=== PATIENT | female | born 1995 | race Caucasian/White ===

== ENCOUNTER → 2020-10-25 | Outpatient (CLI) | payer SELFPAY ==
[2020-10-30 15:34] LABS: HPV Reflexed? NOT INDICATED
== END | disposition home or self-care (01) ==
LOC: LABSPEC 14:07
PROVIDERS: Visit Provider Student in an Organized Health Care Education/Training Program
DX: Z12.4 Encounter for screening for malignant neoplasm of cervix (principal)
CPT/HCPCS: 88175; G0145

== ENCOUNTER → 2022-01-08 | Outpatient (CLI) | payer OTHER, SELFPAY | END | disposition home or self-care (01) | PROVIDERS: PCP Family Medicine; Referring Provider Nurse Practitioner Women's Health; Visit Provider Nurse Practitioner Women's Health | DX: O20.9 Hemorrhage in early pregnancy, unspecified (principal); Z3A.00 Weeks of gestation of pregnancy not specified | CPT/HCPCS: 36415; 84702 ==

== ENCOUNTER → 2022-01-16 | Outpatient (CLI) | payer OTHER, SELFPAY ==
--- NOTE | 2022-01-16 14:37 | US_ITS ---
STUDY: FIRST TRIMESTER OBSTETRICAL ULTRASOUND REASON FOR EXAM: Female, 26 years old viability LMP: 11/12/2021 TECHNIQUE: Transabdominal and Transvaginal TECHNICAL QUALITY: Adequate. PRIOR ULTRASOUND: None. FINDINGS: There is visualization of a single gestational sac in a normal intrauterine position. The mean sac diameter (MSD) measures 33 mm, indicating an estimated gestational age (EGA) of 8 weeks, 3 days. The gestational sac shape is within normal limits. Small subchorionic hemorrhage (implantation bleed) adjacent to the gestational sac. There is a visualized yolk sac. The yolk sac measures 5 mm. The placenta is non-visualized. There is visualization of a live embryo. The crown-rump length (CRL) measures 22 mm, indicating an estimated gestational age (EGA) of 8 weeks, 5 days. There is demonstrated cardiac activity with a heart rate of 176 bpm. The estimated gestation age (EGA) by LMP is 9 weeks, 2 days. The estimated date of delivery (EMI) by LMP is 08/19/2022. The estimated gestation age (EGA) by US is 8 weeks, 4 days. The estimated date of delivery (EMI) by US is 08/24/2022. The uterus measures 9.3 x 6.7 x 5.9 cm. There is no demonstrated uterine fibroid. The cervix is closed. The right ovary measures 3.0 x 2.5 x 2.3 cm. 2 cm cyst in the right ovary. There is no visualized right adnexal mass or complex lesion. The left ovary measures 3.1 x 1.4 x 1.9 cm. There is no left ovarian cyst. There is no visualized left adnexal mass or complex lesion. There is no fluid in the cul de sac. US/Init OB < 14Wks US IMPRESSION: Living intrauterine of 8 weeks 4 days as described above. Electronically Signed: Jaylan Goldstein MD at 18:12 EDT ,
== END | disposition home or self-care (01) ==
LOC: US 14:35
PROVIDERS: PCP Family Medicine; Referring Provider Nurse Practitioner Women's Health; Visit Provider Nurse Practitioner Women's Health
DX: O20.9 Hemorrhage in early pregnancy, unspecified (principal); Z3A.08 8 weeks gestation of pregnancy
CPT/HCPCS: 76801

== ENCOUNTER → 2022-01-21 | Outpatient (CLI) | payer OTHER, SELFPAY ==
[2022-01-21 11:47] LABS: Amphetamine Urine VISTA NEGATIVE (<1000 ng/mL); Barbiturate Urine VISTA NEGATIVE (< 200 ng/mL); Benzodiazepine Urine VISTA NEGATIVE (< 200 ng/mL); Cocaine Urine VISTA NEGATIVE (< 300 ng/mL); Ecstacy Urine VISTA NEGATIVE (< 500 ng/mL); Methadone Urine VISTA NEGATIVE (< 300 ng/mL); PCP Urine VISTA NEGATIVE (< 25 ng/mL); THC Urine VISTA NEGATIVE (< 50 ng/mL); Vista UDS pH Range 6
[2022-01-26 11:26] LABS: Chlamydia By Nucleic Acid AMP Negative (Negative)
[2022-01-26 19:31] LABS: Gonococcus By Nucleic Acid AMP Negative (Negative)
== END | disposition home or self-care (01) ==
LOC: LABSPEC 01-22 06:40
PROVIDERS: PCP Family Medicine; Referring Provider Obstetrics & Gynecology; Visit Provider Obstetrics & Gynecology
DX: Z34.00 Encounter for supervision of normal first pregnancy, unspecified trimester (principal)
CPT/HCPCS: 80307; 87086; 87088; 87491; 87591

== ENCOUNTER → 2022-02-18 | Outpatient (CLI) | payer OTHER, SELFPAY ==
[2022-02-18 16:43] LABS: Absolute Lymphocyte Count 1.62 X10^3/uL (0.83-4.51); Absolute Neutrophil Count 7.8 X10^3/uL (2.0-7.7); Basophil# 0.02 X10^3/uL; Basophil% 0.2 % (0-1); Eosinophil# 0.12 X10^3/uL; Eosinophils% 1.2 % (0-5); Hematocrit 38.1 % (37-47); Lymphocyte # 1.62 X10^3/ul (0.83-4.51); Mean Corp Hgb Conc 34.1 g/dL (32-36); Mean Corpuscular Hgb 30.2 pg (27.0-32.0); Mean Corpuscular Volume 88.6 fL (81-99); Mean Platelet Vol. 9.7 fl (6.2-12.0); Monocyte# 0.56 X10^3/uL; Monocyte% 5.5 % (0-10); NRBC Flagged by Analyzer 0 % (0-5); Neutrophil # 7.76 X10^3/uL (2.7-7.7); Neutrophil % 76.6 % (47-70); Platelet Count 250 K/mm3 (150-450); RBC Distribution Width CV 12.3 % (11.6-14.6); RBC Distribution Width SD 39.5 fl (35.1-43.9); White Blood Count 10.1 K/mm3 (4.4-11.0)
[2022-02-18 17:58] LABS: HIV - WCH Non-Reactive (Nonreactive); Hepatitis B Surface Antigen Non-Reactive (Nonreactive); Hepatitis C Antibody Non-Reactive (Nonreactive); Rubella IgG Reactive (Nonreactive); Syphilis Antibodies Non-reactive
== END | disposition home or self-care (01) ==
PROVIDERS: PCP Family Medicine; Referring Provider Obstetrics & Gynecology; Visit Provider Obstetrics & Gynecology
DX: Z34.00 Encounter for supervision of normal first pregnancy, unspecified trimester (principal)
CPT/HCPCS: 36415; 85025; 86703; 86762; 86780; 86803; 86850; 86900; 86901; 87340

== ENCOUNTER → 2022-05-27 | Outpatient (CLI) | payer OTHER, SELFPAY ==
[2022-05-27 12:57] LABS: Absolute Lymphocyte Count 1.21 X10^3/uL (0.83-4.51); Absolute Neutrophil Count 10.1 X10^3/uL (2.0-7.7); Basophil# 0.03 X10^3/uL; Basophil% 0.2 % (0-1); Eosinophil# 0.12 X10^3/uL; Hemoglobin 13.2 g/dL (12.0-15.0); Lymphocyte # 1.21 X10^3/ul (0.83-4.51); Lymphocyte % 9.9 % (19-41); Mean Corp Hgb Conc 34.7 g/dL (32-36); Mean Corpuscular Hgb 31.5 pg (27.0-32.0); Mean Corpuscular Volume 90.7 fL (81-99); Monocyte% 5.7 % (0-10); NRBC Flagged by Analyzer 0 % (0-5); Neutrophil # 10.09 X10^3/uL (2.7-7.7); Neutrophil % 82.9 % (47-70); Platelet Count 237 K/mm3 (150-450); RBC Distribution Width CV 12.6 % (11.6-14.6); RBC Distribution Width SD 41.1 fl (35.1-43.9); Red Blood Count 4.19 M/mm3 (4.2-5.4); White Blood Count 12.2 K/mm3 (4.4-11.0)
[2022-05-27 13:20] LABS: Glucose Challenge Gest 1H 50g 112 mg/dL (70-140)
== END | disposition home or self-care (01) ==
PROVIDERS: PCP Family Medicine; Visit Provider Obstetrics & Gynecology
DX: O20.9 Hemorrhage in early pregnancy, unspecified (principal); Z3A.00 Weeks of gestation of pregnancy not specified
CPT/HCPCS: 36415; 82950; 85025; 86850; 86900; 86901

== ENCOUNTER → 2022-07-15 | Outpatient (CLI) | payer OTHER, SELFPAY ==
--- NOTE | 2022-07-15 15:39 | US_ITS ---
STUDY: OBSTETRICAL ULTRASOUND - BIOPHYSICAL PROFILE REASON FOR EXAM: Female, 27 years old well being -- hypertension LMP: 11/12/2021. PRIOR ULTRASOUND: Comparison is made with prior sonogram dated 01/16/2022. TECHNIQUE: Transabdominal TECHNICAL QUALITY: Adequate. FINDINGS: There is a single intrauterine fetus. The fetus is in a breech presentation. There is demonstrated cardiac activity with a heart rate of 148 bpm. There is a normal amniotic fluid volume. The largest amniotic fluid pocket measures 4.8 cm x 2.6 cm. The amniotic fluid index (ARTURO) is 14.9 cm. The placenta is fundal and posterior in location. There are Grade 1 placental changes. Age by LMP: 35 weeks, 0 days. EMI by LMP: 08/19/2022. age by prior US: 33 weeks, 0 days. EMI by prior US: 09/02/2022. BIOPHYSICAL PROFILE: Breathing Movements (FBM): 2 Gross Body Movements (GBM): 2 Tone (FT): 2 Amniotic Fluid Volume (AFV): 2 TOTAL SCORE: 8 / 8 US/Biophysical Prof W/O Non Stres IMPRESSION: Normal biophysical profile of /8. Electronically Signed: Bartolo Naylor MD at 12:17 EST ,
--- NOTE | 2022-07-15 15:39 | US_ITS ---
STUDY: SECOND AND THIRD TRIMESTER OBSTETRICAL ULTRASOUND - LIMITED REASON FOR EXAM: Female, 27 years old growth -- hypertension -- known shortened cx LMP: 11/12/2021. PRIOR ULTRASOUND: Comparison is made with prior study dated 01/16/2022. TECHNIQUE: Transabdominal TECHNICAL QUALITY: Adequate. FINDINGS: There is a single intrauterine fetus. The fetus is in a breech presentation. There is demonstrated cardiac activity with a heart rate of 145 bpm. There is a normal amniotic fluid volume. The largest amniotic fluid pocket measures 4.2 cm x 4.1 cm. The amniotic fluid index (ARTURO) is 14.5 cm. The placenta is fundal and posterior in location. There are Grade 1 placental changes. The cervix measures 2. cm in length. BIOMETRY: BPD: 8.18 cm: 32 weeks, 6 days HC: 30.26 cm: 33 weeks, 4 days AC: 29.24 cm: 33 weeks, 2 days FL: 6.65 cm: 34 weeks, 2 days Age by LMP: 35 weeks, 0 days. EMI by LMP: 08/19/2022. age by prior US: 33 weeks, 1 days. EMI by prior US: 09/01/2022. age by current US: 33 weeks, 0 days. EMI by current US: 09/02/2022. Estimated weight: 2228 grams, +/- 334 grams, 14.3 percentile. US/OB Limited With Biometrics IMPRESSION: Single live intrauterine gestation with a mean gestational age of 33 weeks and 1 day. The measurements obtained today fall within the normal expected range. Electronically Signed: Bartolo Naylor MD at 12:11 EST ,
[2022-07-15 16:03] LABS: Absolute Lymphocyte Count 1.65 X10^3/uL (0.83-4.51); Absolute Neutrophil Count 8.5 X10^3/uL (2.0-7.7); Basophil# 0.03 X10^3/uL; Basophil% 0.3 % (0-1); Eosinophils% 0.9 % (0-5); Hematocrit 40.8 % (37-47); Hemoglobin 13.6 g/dL (12.0-15.0); Lymphocyte # 1.65 X10^3/ul (0.83-4.51); Lymphocyte % 14.9 % (19-41); Mean Corp Hgb Conc 33.3 g/dL (32-36); Mean Corpuscular Hgb 30.8 pg (27.0-32.0); Mean Corpuscular Volume 92.5 fL (81-99); Mean Platelet Vol. 9.4 fl (6.2-12.0); Monocyte# 0.76 X10^3/uL; Monocyte% 6.9 % (0-10); NRBC Flagged by Analyzer 0 % (0-5); Neutrophil # 8.46 X10^3/uL (2.7-7.7); Neutrophil % 76.5 % (47-70); Platelet Count 242 K/mm3 (150-450); RBC Distribution Width CV 13.1 % (11.6-14.6); RBC Distribution Width SD 43.4 fl (35.1-43.9); Red Blood Count 4.41 M/mm3 (4.2-5.4); White Blood Count 11.1 K/mm3 (4.4-11.0)
[2022-07-15 16:22] LABS: ALB/GLOB Ratio 0.7 RATIO (0.9-2.4); AST(SGOT) 16 U/L (15-37); Alanine Aminotransfer ALT/SGPT 28 U/L (13-56); Albumin, Serum 2.7 g/dL (3.2-5.0); Alkaline Phosphatase 93 U/L (45-117); Anion Gap 8 (5-15); BUN 11 mg/dL (7-18); BUN/Creat Ratio 18.3 RATIO (10-20); Calcium,Total 8.8 mg/dL (8.5-10.1); Chloride 108 mmol/L (98-107); EST Glomerular Filtration Rate 127 mL/min (>60); Est Glom Filt Rate - Afr Amer 153 mL/min (>60); Glucose 82 mg/dL (74-106); Potassium 3.9 mmol/L (3.5-5.1); Protein, Total 6.7 g/dL (6.4-8.2); Sodium Level 137 mmol/L (136-145)
== END | disposition home or self-care (01) ==
PROVIDERS: PCP Family Medicine; Visit Provider Obstetrics & Gynecology
DX: O26.849 Uterine size-date discrepancy, unspecified trimester (principal); O16.3 Unspecified maternal hypertension, third trimester; Z3A.33 33 weeks gestation of pregnancy
CPT/HCPCS: 36415; 76816; 76819; 80053; 85025

== ENCOUNTER → 2022-07-16 | Outpatient (CLI) | payer OTHER, SELFPAY ==
[2022-07-16 13:34] LABS: Protein, Urine (Random) 12.2 mg/dL (<11.9); Protein:Creat Ratio 126 mg/g CRE (0-200)
== END | disposition home or self-care (01) ==
PROVIDERS: PCP Family Medicine; Referring Provider Obstetrics & Gynecology; Visit Provider Obstetrics & Gynecology
DX: O16.3 Unspecified maternal hypertension, third trimester (principal); Z3A.00 Weeks of gestation of pregnancy not specified
CPT/HCPCS: 82570; 84156

== ENCOUNTER 2022-07-22 10:50 | Outpatient (CLI) | payer OTHER, SELFPAY ==
[2022-07-22] VITALS (8 sets, daily range): BP systolic 118–133; BP diastolic 72–87; PULSE 78–90; TEMP 36.5; O2SAT 96; BMI 34.7
[2022-07-22 11:24] LABS: Hematocrit 39.7 % (37-47); Hemoglobin 13.3 g/dL (12.0-15.0); Mean Corp Hgb Conc 33.5 g/dL (32-36); Mean Corpuscular Hgb 30.6 pg (27.0-32.0); Mean Corpuscular Volume 91.3 fL (81-99); Mean Platelet Vol. 9.6 fl (6.2-12.0); Platelet Count 218 K/mm3 (150-450); RBC Distribution Width CV 12.9 % (11.6-14.6); RBC Distribution Width SD 42.3 fl (35.1-43.9); Red Blood Count 4.35 M/mm3 (4.2-5.4); White Blood Count 11.9 K/mm3 (4.4-11.0)
[2022-07-22 11:40] LABS: AST(SGOT) 15 U/L (15-37); Alanine Aminotransfer ALT/SGPT 22 U/L (13-56); Creatinine, Serum 0.57 mg/dL (0.55-1.02); EST Glomerular Filtration Rate 135 mL/min (>60); Est Glom Filt Rate - Afr Amer 164 mL/min (>60); Estimated Creatinine Clearance 122.64 ml/min; Uric Acid 6.2 mg/dL (2.6-6.0)
[2022-07-22 12:52] LABS: Protein, Urine (Random) 6.2 mg/dL (<11.9); Protein:Creat Ratio 107 mg/g CRE (0-200)
--- NOTE | 2022-07-22 20:08 | OB.TRI.HP_ITS ---
HPI - General HPI Narrative MARIA DEL CARMEN SOUZA, is a 27 F who presents to L&D for PIH work up and NST. She was in office earlier today and found to have elevated blood pressures and breech presentation. [facility] Medical History (Updated 07/29/22 @ 17:04 by Jaylyn Gimenez) Gestational HTN Short cervical length during Supervision of normal first Home Medications prenat.vits,imelda,mjn-yaao-jhgru 1 tab PO DAILY 01/07/22 [History Last Taken 07/28/22] ibuprofen 800 mg tablet 800 mg PO Q8H PRN pain 7 days #30 tabs 07/29/22 [Rx Last Taken Unknown] oxycodone-acetaminophen 5 mg-325 mg tablet (Percocet) 1 tab PO Q6H PRN pain 7 days #30 tabs 07/29/22 [Rx Last Taken Unknown] Allergy/AdvReac Type Severity Reaction Status Date / Time cetirizine [From Zyrtec] AdvReac Mild stomach Verified 07/27/22 09:24 pains Family History Father Hypertension Pacemaker Hypercholesteremia Mother Cancer skin cancer Surgical History (Updated 07/30/22 @ 08:[address] Amy Santiago, DO) History of surgery Status post section Social History adopted: No household members: spouse current occupational status: employed current occupation: [employer] pets and animals: Yes pets and animals: dog(s) Smoking Status: Never smoker details: not while substance use type: does not use caffeine: Yes do you feel safe at home: Yes additional social history: spouse:Yoni History 1 Elective abortions Hx Para 1 Spontaneous abortions Hx # Term Pregnancies Ectopic pregnancies Hx # Pregnancies Multiple births # of living children 1 Past Pregnancies Del. Date Name GA/Weeks Outcome Route Bth Weight Gen Labor Lgth Anesthesia Del Locatn Provider FOB 07/29/22 Hannah 37 live - full term Female spinal [facility] Amy Santiago Yoni Delivery Date: 07/29/22 Last Updated by: Jaylyn Gimenez prim c/s for breech ROS Constitutional Constitutional: Reports systems reviewed and no addt'l complaints, except as doc umented Gastrointestinal Gastrointestinal: Denies bloating, constipation, cramping, diarrhea, nausea or vomiting Genitourinary Genitourinary: Reports other Details: Denies vaginal odor, vaginal bleeding, or vaginal discharge ; Denies difficulty urinating or flank pain Physical Exam HEENT normocephalic Resp normal respiratory effort and normal air movement no CVA tenderness Extremity normal to inspection General Extremity: edema bilateral (trace ) NST FHR Rate Baby A Baseline: 140 Variability:: Moderate Accelerations:: 15 x 15 Decelerations:: None NST Reactive:: Yes FHR Category:: Category I Assessment & Plan (1) : QUALIFIERS: Weeks of gestation: 36 weeks Qualified Code(s): Z3A.36 - 36 weeks gestation of COMMENT: nl anatomy, declines carrier, ntd, and genetic screen. (2) Short cervical length during : COMMENT: incidentally, on progesterone supplement. 04/01 25.5mm. Rpt US still 25.5mm stable (3) induced hypertension: COMMENT: PIH labs normal, growth us baby 14% likely plan for 37 week delivery. C section scheduled for 07/29 @ 7:10am. PLAN: PIH but not pre-eclampsia. plan for 37 week delivery dc to home Charges/Coding Multi Select Codes Visit Charges Office Visit/Consults: 08793 OV L3 Est Urinary/Genital Urinary/Genital CPT Codes: 12119-52 non-stress test Interp
== END 2022-07-22 12:57 | disposition home or self-care (01) ==
LOC: WPOUT 10:57 → WP 10:57
PROVIDERS: PCP Family Medicine; Visit Provider Registered Nurse
DX: O13.3 Gestational [pregnancy-induced] hypertension without significant proteinuria, third trimester (principal); O34.219 Maternal care for unspecified type scar from previous cesarean delivery; Z3A.36 36 weeks gestation of pregnancy; O26.873 Cervical shortening, third trimester
CPT/HCPCS: 36415; 59025; 59050; 76815; 82565; 82570; 84156; 84450; 84460; 84550; 85027; 87081; 99218; G0378

== ENCOUNTER 2022-07-29 05:00 | Inpatient (IN) | payer OTHER, SELFPAY ==
[2022-07-29] VITALS (19 sets, daily range): BP systolic 103–128; BP diastolic 57–85; PULSE 70–93; RESP 16–18; TEMP 36.1–37; O2SAT 94–98; BMI 35.0
[2022-07-29] MEDS: Lactated Ringers 1,000 ML 999 ML IV (05:20)
[2022-07-29 05:33] LABS: Absolute Lymphocyte Count 1.86 X10^3/uL (0.83-4.51); Absolute Neutrophil Count 7.3 X10^3/uL (2.0-7.7); Basophil# 0.03 X10^3/uL; Basophil% 0.3 % (0-1); Eosinophil# 0.15 X10^3/uL; Eosinophils% 1.5 % (0-5); Hematocrit 39.6 % (37-47); Hemoglobin 13.2 g/dL (12.0-15.0); Lymphocyte # 1.86 X10^3/ul (0.83-4.51); Lymphocyte % 18.6 % (19-41); Mean Corp Hgb Conc 33.3 g/dL (32-36); Mean Corpuscular Hgb 30.9 pg (27.0-32.0); Mean Corpuscular Volume 92.7 fL (81-99); Mean Platelet Vol. 9.8 fl (6.2-12.0); Monocyte# 0.61 X10^3/uL; Monocyte% 6.1 % (0-10); NRBC Flagged by Analyzer 0 % (0-5); Neutrophil % 73.2 % (47-70); Platelet Count 215 K/mm3 (150-450); RBC Distribution Width CV 13.2 % (11.6-14.6); RBC Distribution Width SD 44.2 fl (35.1-43.9); Red Blood Count 4.27 M/mm3 (4.2-5.4)
[2022-07-29] MEDS: Acetaminophen 500 MG Tablet 1000 MG PO ×4 (05:39→23:40)
[2022-07-29] MEDS: Lactated Ringers 1,000 ML 150 ML IV (06:16)
[2022-07-29] MEDS: Sodium Citrate/Citric Acid 30 ML UDC PO (06:59)
--- NOTE | 2022-07-29 07:09 | HP.PCM.OB_ITS ---
HPI - General General Date of Admission: 07/29/22 HPI Narrative MARIA DEL CARMEN SOUZA, is a 27 y/o @ 37 weeks who presents to L&D for scheduled section due to breech and pre-eclampsia. Maternal Data Information EMI Calculator Estimated Delivery Date Method Current WG Current Estimate 08/19/22 Ultrasound #2 37w 0d Other Estimates 08/19/22 LMP (Certain) 37w 0d PFSH PFSH Medical History (Updated 07/29/22 @ 05:33 by Bonny Marte) Gestational HTN Home Medications prenat.vits,imelda,uwt-firs-zhowk 1 tab PO DAILY 01/07/22 [History Last Taken 07/28/22] Allergy/AdvReac Type Severity Reaction Status Date / Time cetirizine [From Zyrtec] AdvReac Mild stomach Verified 07/27/22 09:24 pains Family History Father Hypertension Pacemaker Hypercholesteremia Mother Cancer skin cancer Surgical History (Updated 07/29/22 @ 05:33 by Bonny Marte) History of surgery Social History adopted: No household members: spouse current occupational status: employed current occupation: [employer] at work Care pets and animals: Yes pets and animals: dog(s) Smoking Status: Never smoker details: not while substance use type: does not use caffeine: Yes do you feel safe at home: Yes additional social history: spouse:Yoni History 1 Elective abortions Hx Para 0 Spontaneous abortions Hx # Term Pregnancies Ectopic pregnancies Hx # Pregnancies Multiple births # of living children Visit Details Expected Delivery Route/Plan Labor Preferences- CB/BF classes: yes labor support person: Yoni labor intervention preferences: [] pain management options preferred: open to epidural cut cord/dad catch: cord : yes PP control planned: [] discussed possible routes of delivery and associated risks: [] special requests: [] Plans Covid status: unvaccinated, covid infection June 2021 Flu vaccine: unvaccinated Tdap vaccine: given Rhogam: na LARC form signed: yes Problem list reviewed and updated with the most current plan of care details and appropriate orders placed. Relevant counseling for the gestational age provided. Continue routine care and follow up unless otherwise noted in visit notes/problem list details OB Flowsheet Initial Weight: Not Recorded Date -?-?-?-?-?-?-?-?-?-?-?-?- EGA Weight BP Urine Prot -?-?-?-?-?-?-?-?-?-?-?-?- Glucose FHR FuHt Pres Dilation -?-?-?-?-?-?-?-?-?-?-?-?- Effaced St Visit Note 01/21/22 -?-?-?-?-?-?-?-?-?-?-?-?- 10w 0d 153 lb 8 oz 110/78 -?-?-?-?-?-?-?-?-?-?-?-?- 171 -?-?-?-?-?-?-?-?-?-?-?-?- JV- CRL today is consistent with LMP. ultrasound was done at hospital also. keeping due date 08/19/21 02/18/22 -?-?-?-?-?-?-?-?-?-?-?-?- 14w 0d 154 lb 8 oz 110/64 Nega tive -?-?-?-?-?-?-?-?--?-?-?-?- Negative 163 -?-?-?-?-?-?-?-?-?-?-?-?- MH-No further VB . Nausea improving. Will do PNL today. Declines genetic testing. 03/18/22 -?-?-?-?-?-?-?-?-?-?-?-?- 18w 0d 160 lb 6 oz 113/76 Nega tive -?-?-?-?-?-?-?-?-?-?-?-?- Negative 160 -?-?-?-?-?-?-?-?-?-?-?-?- JV- has ultrasou nd appt next week. no further nausea. 04/13/22 -?-?-?-?-?-?-?-?-?-?-?-?- 21w 5d 170 lb 102/74 Negative -?-?-?-?-?-?-?-?-?-?-?-?- Negative 150 -?-?-?-?-?-?-?-?-?-?-?-?- SM- no vb lof go od fm no regular ctx 05/12/22 -?-?-?-?-?-?-?-?-?-?-?-?- 25w 6d 177 lb 118/80 Negative -?-?-?-?-?-?-?-?-?-?-?-?- Negative 155 26 -?-?-?-?-?-?-?-?-?-?-?-?- SM- no vb lof go od fm nor egular ctx 05/27/22 -?-?-?-?-?-?-?-?-?-?-?-?- 28w 0d 182 lb 118/70 Negative -?-?-?-?-?-?-?-?-?-?-?-?- Negative 150 -?-?-?-?-?-?-?-?-?-?-?-?- MH-No vB, LOF. G ood FM. Inital FHt 180-200. On monitor and then 150s. Very active fetus. 28 wk labs, larc. Declines flu. Considering tdap. 06/10/22 -?-?-?-?-?-?-?-?-?-?-?-?- 30w 0d 186 lb 118/76 Negative -?-?-?-?-?-?-?-?-?-?-?-?- Negative 153 29 -?-?-?-?-?-?-?-?-?-?-?-?- LC- no vb,ctx,lo f. good FM. discussed tdap again, will decide. 06/24/22 -?-?-?-?-?-?-?-?-?-?-?-?- 32w 0d 189 lb 6 oz 118/84 Nega tive -?-?-?-?-?-?-?-?-?-?-?-?- Negative 159 32 -?-?-?-?-?-?-?-?-?-?-?-?- MH-No VB, LOF or reg CTX. Good FM. Tdap today 07/08/22 -?-?-?-?-?-?-?-?-?-?-?-?- 34w 0d 191 lb 8 oz 131/88 Nega tive -?-?-?-?-?-?-?-?-?-?-?-?- Negative 154 33 -?-?-?-?-?-?-?-?-?-?-?-?- JV- no lof, vagi nal bleeding, headache, visual changes, RUQ pain, or dec fm. bringing back next week to watch pressures closer. no proteinuria today. 07/15/22 -?-?-?-?-?-?-?--?-?-?-?-?- 35w 0d 194 lb 6 oz 140/94 Nega tive -?-?-?-?-?-?-?-?-?-?-?-?- Negative 145 33 Cephalic -?-?-?-?-?-?-?-?-?-?-?-?- JV- pressures st arting to increase into the range of 140's/90's still asymptomatic. ordering PIH labs, growth and bpp today. 07/22/22 -?-?-?-?-?-?-?-?-?-?-?-?- 36w 0d 195 lb 136/100 Trace -?-?-?-?-?-?-?-?-?-?-?-?- Negative 140 35 1 -?-?-?-?-?-?-?-?-?-?-?-?- 60 -3 LC- BP at home 130/90-95. no headache, visual changes or RUQ pain. will obtain NST and BPP today. IOL next week LC- BP at home 130/90-95. no headache, visual changes or RUQ pain. d/w Dr. Santiago sending to for PEC work up dt severe diastolic range BP. LC- BP at home 130/90-95. no headache, visual changes or RUQ pain. d/w Dr. Santiago sending to for PEC work up dt severe diastolic range BP. GBS collected today 07/27/22 -?-?-?-?-?-?-?-?-?-?-?-?- 36w 5d 198 lb 4 oz 118/88 Nega tive -?-?-?-?-?-?-?-?-?-?-?-?- Negative 140 37 Breech -?-?-?-?-?-?-?-?-?-?-?-?- SM- no vb lof go od fm n oregular ctx consent signed ROS Constitutional Constitutional: Denies change in weight, fatigue, fever(s), headache(s), poor appetite or weakness Eyes Eyes: Denies blurry vision, change in vision, seeing flashes or spots in vision ENT HEENT: Denies dizziness, headache(s), loss taste/smell or sore throat Cardiovascular Cardiovascular: Denies chest pain, dizziness, dyspnea, irregular heart rhythm, leg edema, palpitations, rapid heart rate or vomiting Respiratory/Chest Respiratory/Chest: Denies chest tightness, cough, dyspnea or breast pain Gastrointestinal Gastrointestinal: Denies abdominal pain, anorexia, constipation, cramping, diarrhea, hemorrhoids, vomiting or weight changes Genitourinary Genitourinary: Denies dysuria, flank pain, genital lesions, genital pain, urinary frequency or urinary urgency Musculoskeletal Musculoskeletal: Denies back pain, difficulty walking, joint pain, limited range of motion, muscle cramps or numbness Integumentary Integumentary: Denies lesions or unusual bruising Neurologic Neurologic: Denies abnormal movements, abnormal speech, dizziness, numbness, seizure-like activity or syncope Psychiatric Psychiatric: Denies anxiety, behavioral changes, change in appetite, change in libido, cognitive impairment, confusion, depression, difficulty concentrating, hallucinations or suicidal thoughts Endocrine Endocrinology: Denies excessive sweating, polydipsia or polyuria Hematologic/Lymphatic Hematologic/Lymphatic: Denies easy bleeding, easy bruising or lymphadenopathy Allergic/Immunologic Allergic/Immunologic: Denies itchy eyes, lip swelling, seasonal rhinorrhea, rhinitis, throat swelling, tongue swelling, eczemia, wheezing or asthma Vital Signs Vital Signs Vital Signs: 07/29/22 05:37 07/29/22 05:19 07/29/22 05:19 Temperature 97.6 F L Temperature Source Temporal Pulse Rate 93 92 Respiratory Rate 18 Blood Pressure 128/80 H 128/80 H Blood Pressure Mean 96 BP Systolic 128 BP Diastolic 80 Blood Pressure Source Monitor Blood Pressure Position Semi-Fowlers Blood Pressure Location Right Arm Pulse Ox 98 Oxygen Delivery Method Room Air 07/29/22 05:19 Temperature Temperature Source Pulse Rate Respiratory Rate Blood Pressure Blood Pressure Mean BP Systolic BP Diastolic Blood Pressure Source Blood Pressure Position Blood Pressure Location Pulse Ox 98 Oxygen Delivery Method Weight Weight: 198 lb Body Mass Index (BMI) 35.0 Physical Exam Const alert, oriented x3, no apparent distress and healthy appearing General Appearance: cooperative; Negative for anxious HEENT normocephalic Face and Sinus: normal facial exam Eyes EOMs intact bilaterally and no scleral icterus General Eye: normal appearance of both eyes Neck full ROM and supple Lymph Lymphatic: no lymphadenopathy noted Chest Chest: abnormal inspection of the chest Resp normal respiratory effort Effort and Inspection: able to speak in complete sentences Cardio regular rate GI soft to palpation and non-tender Inspection: gravid Palpation: soft; Negative for tender Back/Spine no CVA tenderness Extremity normal to inspection, full ROM and no clubbing, cyanosis or edema General Extremity: Negative for calf tenderness or edema Skin Lesions: no lesions Rashes: no rashes Psych mental status grossly normal Labs Labs Labs: Blood Type A POSITIVE Antibody Screen NEGATIVE Hct 39.6 % (37-47) Hgb 13.2 g/dL (12.0-15.0) Pap Smear Negative Obstetrics US Syphilis Total Ab Non-reactive Rubella IgG Antibody Reactive (Nonreactive) Hep Bs Antigen Non-Reactive (Nonreactive) Chlamydia DNA (SRIRAM) Negative (Negative) Neisseria gonorrhoeae DNA (SRIRAM) Negative (Negative) HIV 1&2 Antibody Non-Reactive (Nonreactive) Glucose 1 Hr 50 gm 112 mg/dL (70-140) Assessment & Plan (1) : QUALIFIERS: Weeks of gestation: 36 weeks Qualified Code(s): Z3A.36 - 36 weeks gestation of COMMENT: nl anatomy, declines carrier, ntd, and genetic screen. (2) Supervision of normal first : COMMENT: PRR EMI: 08/19/22 girl Celine Sp:Yoni (3) Short cervical length during : COMMENT: incidentally, on progesterone supplement. 04/01 25.5mm. Rpt US still 25.5mm stable (4) induced hypertension: COMMENT: PIH labs normal, growth us baby 14% likely plan for 37 week delivery. C section scheduled for 07/29 @ 7:10am. PLAN: Plan plan for primary ERAS scheduled section 2 grams ancef ordered position confirmed breech this am
[2022-07-29] MEDS: Ondansetron 4 MG/2 ML Vial IV (07:10)
[2022-07-29] MEDS: Cefazolin 2 GM in 0.9% Normal Saline 100 ML IV (07:25)
[2022-07-29] MEDS: Oxytocin 15 Units/NS 250ml 15 UNITS/250 ML IV.SOLN 83 UNITS IV (08:25)
--- NOTE | 2022-07-29 08:48 | OP.PCM_ITS ---
Assessment & Plan (1) : QUALIFIERS: Weeks of gestation: 36 weeks Qualified Code(s): Z3A.36 - 36 weeks gestation of COMMENT: nl anatomy, declines carrier, ntd, and genetic screen. (2) Supervision of normal first : COMMENT: PRR EMI: 08/19/22 homero Berger Sp:Yoni (3) Short cervical length during : COMMENT: incidentally, on progesterone supplement. 04/01 25.5mm. Rpt US still 25.5mm stable (4) induced hypertension: COMMENT: PIH labs normal, growth us baby 14% likely plan for 37 week delivery. C section scheduled for 07/29 @ 7:10am. Maternal Data Information EMI Calculator Estimated Delivery Date Method Current WG Current Estimate 08/19/22 Ultrasound #2 37w 0d Other Estimates 08/19/22 LMP (Certain) 37w 0d Final EMI: 08/19/21 Final EMI Source: US <20 weeks Gestational age: 37 weeks Details Operative Information Date of Procedure: 07/29/22 Pre-Operative Diagnosis: 37 weeks 0 days , mild pre-eclampsia, Breech presentation Post-Operative Diagnosis: 37 weeks 0 days , mild pre-eclampsia, Breech presentation Classification: Scheduled Procedure Type: low transverse extension course counselor #1: Yuli Delgado Type of Anesthesia: Spinal Antibiotic Given: Ancef 2 grams IV x1 Estimated Blood Loss: 300cc Findings Description of Procedure: The patient is a 27 y/o with mild pre-eclampsia and breech presentation, presented for prior . Spinal anesthesia was placed without difficulty. Fernandez catheter was placed. The patient was placed in the dorsal supine position with leftward tilt. Patient was prepped and draped in the normal sterile fashion. Pfannenstiel skin incision was made with the scalpel and carried through to the underlying layer of fascia with the scalpel. Fascia was nicked in the midline and the incision extended laterally. The rectus bellies were dissected off superiorly and inferiorly with out complication both sharply and bluntly. The peritoneum was entered digitally. The incision was stretched and a low transverse uterine incision was made with the scalpel. The infant's buttocks was grasped and delivered through the incision, the shoulders, head and neck quickly followed without difficulty. The infant was found to be vigorous and crying and pink. The cord was clamped and cut and the infant was handed off to awaiting nurse. The placenta was delivered spontaneously immediately following and was noted to be intact and have a three-vessel cord. The uterus was exteriorized cleared of all clots and debris. 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 The incision was closed in a double layer closure using #1 Vicryl and #1 Monocryl. The ovaries and fallopian tubes were noted to be within normal limits. The uterus was returned to the maternal abdomen and gutters were cleared of all clots and debris. The peritoneum was closed with 3-0 Monocryl in a running fashion. Gloves were changed prior to fascial closure. Fascia was closed with 0 PDS in a running fashion. Subcutaneous tissue was copiously irrigated and the skin was closed with 3-0 Monocryl in a subcuticular fashion. Mepilex dressing was applied without complication. Patient was taken to recovery in stable condition. It was discussed with the patient that based on the clinical information obtained during this encounter, combined with her history, at this time I would recommend for future deliveries if further pregnancies are desired. Presentation: Positive for Aleksandr Breech Amniotic Membrane Rupture Type: Artificial Amniotic Fluid Description: Clear Placental Delivery Description: Expressed Placenta Disposition: [facility] Cord Vessel Description: 3 Vessels Cord Entanglement: None Infant A Gender: Female (1 minute): 8 (5 minute): 8 Delayed Cord Clamping: Yes Complications Risks of Surgery Discussed w/Patient: Bleeding, Anesthesia Risks, Infection, Need for Future C-Sections and Injury to surrounding structure(s) including bowel and bladder Multi Select Codes Urinary/Genital Urinary/Genital CPT Codes: 38691 Delivery [facility]
--- NOTE | 2022-07-29 08:58 | DCINST_ITS ---
Discharge Instructions Diet Discharge Diet: No restrictions Activity Discharge Activity: May Not Drive (for 2 weeks or while taking narcotic pain medications.), May Shower and May Take a Tub Bath (in 7 days.) May resume sexual activity in: 4-6 weeks Weight Bearing Status: Full weight bearing Lifting Restrictions: 20 pounds Dressing / Incision Call your doctor if your incision/area has: Continuous Slow Oozing, Sudden Increased Bleeding, Increased Pain/ Swelling, Increased Redness and Foul Smelling Discharge Call your doctor if you observe: Fever of 101 or Higher and Using more than 1 pad per hour Suture Line Care: Avoid Pulling/Pushing and Avoid Pinching/Bending Cleanse incision/area with: Soap & Water and Keep Dressing Clean & Dry Follow Up Care Please Follow Up With: Amy Santiago DO When: Call [phone] to make an appointment for an incision check in 1-2 weeks. Test Results: Test results from this visit will be discussed in further detail at your follow- up appointment, if applicable. Discharge Plan Admission Admit Date/Time: 07/29/22 05:00 Primary Reason for Your Visit: section Attending Provider: Amy Santiago Primary Care Provider: Vesta Camacho Discharge Orders/Prescriptions Prescriptions: New ibuprofen 800 mg tablet 800 mg PO Q8H PRN (Reason: pain) 7 Days Qty: 30 0RF oxycodone-acetaminophen [Percocet] 5-325 mg tablet 1 tab PO Q6H PRN (Reason: pain) 7 Days Qty: 30 0RF Continued prenat.vits,imelda,wpy-shpk-ncaxw Tablet 1 tab PO DAILY Referrals / Follow Up: Vesta Camacho MD [Primary Care Provider] - Disposition Disposition (needs filled in before D/C Order can be placed): Home, Self Care
[2022-07-29] MEDS: Ketorolac 30 MG/ML Syringe IV ×3 (09:11→20:57)
[2022-07-29] MEDS: Senna/Docusate Sodium 1 Tablet PO (11:34)
[2022-07-29] MEDS: DiphenhydrAMINE 25 MG Capsule PO (11:34)
[2022-07-29] MEDS: Lactated Ringers 1,000 ML 100 ML IV (11:36)
[2022-07-29] MEDS: 0.9% Saline Lock 10 ML Syringe IV (20:57)
[2022-07-30] MEDS: Ketorolac 30 MG/ML Syringe IV (03:29)
[2022-07-30] MEDS: 0.9% Saline Lock 10 ML Syringe IV (03:30)
[2022-07-30 03:37] VITALS: BP 122/72; PULSE 92; RESP 16; TEMP 36.4
[2022-07-30 04:50] LABS: Hematocrit 34.6 % (37-47); Hemoglobin 11.3 g/dL (12.0-15.0); Mean Corp Hgb Conc 32.7 g/dL (32-36); Mean Corpuscular Hgb 30.9 pg (27.0-32.0); Mean Corpuscular Volume 94.5 fL (81-99); Mean Platelet Vol. 9.2 fl (6.2-12.0); Platelet Count 170 K/mm3 (150-450); RBC Distribution Width CV 13.2 % (11.6-14.6); RBC Distribution Width SD 45.7 fl (35.1-43.9); Red Blood Count 3.66 M/mm3 (4.2-5.4); White Blood Count 9.9 K/mm3 (4.4-11.0)
[2022-07-30] MEDS: Acetaminophen 500 MG Tablet 1000 MG PO ×3 (06:26→18:26)
[2022-07-30 08:00] VITALS: BP 126/78; PULSE 81; RESP 16; TEMP 36.7; O2SAT 98
--- NOTE | 2022-07-30 08:47 | PCM.PN.OB ---
Subjective Subjective Patient is laying in bed comfortably without complaints. She states that she slept on an off during the night. Lochia is mild and pain is minimal. She was told the baby is severely tongue tied and will be needing some help from the case management specialist today Objective Data Objective Data Vital Signs: Vital Signs Temp Pulse Resp BP Pulse Ox O2 Del Method 97.6 F L 92 16 122/72 H 98 Room Air 07/30/22 03:37 07/30/22 03:37 07/30/22 03:37 07/30/22 03:37 07/29/22 16:46 07/30/22 03:37 Oxygen Delivery Method Room Air Weight: 198 lb Body Mass Index (BMI) 35.0 Intake & Output: Intake and Output for Last 24 Hours 07/28/22 07/29/22 07/30/22 23:59 23:59 23:59 Intake Total 2061.55 / 2061.55 Output Total 275 / 275 700 / 700 Balance 1786.55 / 1786.55 -700 / -700 Lab / Micro Data Result Diagrams: 07/30/22 04:43 Labs: Laboratory Results - last 24 hr 07/29/22 05:20: Blood Type A POSITIVE, Antibody Screen NEGATIVE 07/30/22 04:43: WBC 9.9, RBC 3.66 L, Hgb 11.3 L, Hct 34.6 L, MCV 94.5, MCH 30.9, MCHC 32.7, RDW Std Deviation 45.7 H, RDW Coeff of Jessika 13.2, Plt Count 170, MPV 9.2 ROS Constitutional Constitutional: Reports systems reviewed and no addt'l complaints, except as documented Cardiovascular Cardiovascular: Denies chest pain, dizziness, dyspnea or irregular heart rhythm Respiratory/Chest Respiratory/Chest: Denies cough, pain on inspiration or shortness of breath at rest Gastrointestinal Gastrointestinal: Denies abdominal pain, nausea or vomiting Genitourinary Genitourinary: Denies burning urination Musculoskeletal Musculoskeletal: Denies muscle cramps, muscle spasms or muscle weakness Neurologic Neurologic: Denies confusion, dizziness, headache(s) or lack of coordination Psychiatric Psychiatric: Denies anxiety, behavioral changes or depression Physical Exam HEENT normocephalic Resp normal respiratory effort and normal air movement GI soft to palpation, non-tender and non-distended Rectal Exam: other Other Details: Incision is clean, dry, and intact no CVA tenderness Extremity normal to inspection General Extremity: edema bilateral (trace ) Assessment & Plan (1) induced hypertension: COMMENT: PIH labs normal, growth us baby 14% likely plan for 37 week delivery. C section scheduled for 07/29 @ 7:10am. (2) Status post section: PLAN: s/p LTCS PPD # 1 1. routine post care 2. breast feeding- support given 3. rh positive 4. rubella immune 5. discharge planning- will follow up tomorrow for dc plan this weekend.
[2022-07-30] MEDS: Naproxen 500 MG Tablet PO ×2 (09:31→17:34)
[2022-07-30] MEDS: Senna/Docusate Sodium 1 Tablet PO (09:31)
[2022-07-30] MEDS: oxyCODONE 5 MG Tablet PO ×2 (10:36→20:51)
[2022-07-30 16:15] VITALS: BP 134/75; PULSE 87; RESP 16; TEMP 36.9
[2022-07-30 20:18] VITALS: BP 121/82; PULSE 95; RESP 16; TEMP 36.3; O2SAT 96
[2022-07-31] MEDS: Acetaminophen 500 MG Tablet 1000 MG PO ×2 (00:22→06:38)
[2022-07-31 01:33] VITALS: BP 132/78; PULSE 95; RESP 16; TEMP 36.4; O2SAT 95
[2022-07-31] MEDS: Naproxen 500 MG Tablet PO (01:33)
[2022-07-31 07:37] VITALS: BP 133/86; PULSE 82; RESP 16; TEMP 36.3
--- NOTE | 2022-07-31 07:55 | DS.PCM_ITS ---
Providers Date of Admission: 07/29/22 Primary Care Physician: Dr. Vesta Camacho MD Reason For Visit: PRIMARY C SECTION Diagnosis Discharge Diagnosis (1) induced hypertension: Status: Acute Code(s): O13.9 - Gestational [-induced] hypertension without significant proteinuria, unspecified trimester (2) Status post section: Status: Acute Code(s): Z98.891 - History of uterine scar from previous surgery Medications at Discharge Home Medications prenat.vits,imelda,civ-drrm-drzuk 1 tab PO DAILY 01/07/22 ibuprofen 800 mg tablet 800 mg PO Q8H PRN pain 7 days #30 tabs 07/29/22 oxycodone-acetaminophen 5 mg-325 mg tablet (Percocet) 1 tab PO Q6H PRN pain 7 days #30 tabs 07/29/22 Hospital Course Summary of Care Provided Minutes Spent on Discharge: 15 Hospital Course: The patient was admitted on 07/29/22 for a scheduled primary section for breech and pre-eclampsia. Surgery was uncomplicated and she was doing very well on post op day#0 and #1 but with some mild pain. By post op day #2 patient was doing well without complaints. Tolerating PO. Ambulating and voiding without difficulty. Feeding well. Denies chest pain, shortness of breath, calf pain/swelling, fevers, chills, lightheadedness. She requested discharge to home . Physical Exam HEENT normocephalic Resp normal respiratory effort and normal air movement GI soft to palpation, non-tender and non-distended Rectal Exam: other Other Details: Incision is clean, dry, and intact no CVA tenderness Extremity normal to inspection General Extremity: edema bilateral (trace ) Weight / BMI Weight Weight: 198 lb Body Mass Index (BMI) 35.0 ABG / Lab / Microbiology Data Result Diagrams: 07/30/22 04:43 D/C Instructions Discharge Diet: No restrictions May resume sexual activity in: 4-6 weeks Weight Bearing Status: Full weight bearing Call your doctor if your incision/area has: Continuous Slow Oozing, Sudden Increased Bleeding, Increased Pain/ Swelling, Increased Redness and Foul Smelling Discharge Call your doctor if you observe: Fever of 101 or Higher and Using more than 1 pad per hour Suture Line Care: Avoid Pulling/Pushing and Avoid Pinching/Bending Cleanse incision/area with: Soap & Water and Keep Dressing Clean & Dry Please Follow Up With: Amy Santiago DO When: Call [phone] to make an appointment for an incision check in 1-2 we casandras. Meaningful Use Info Meaningful Use Diagnoses (Choose all that apply): None applicable Discharge Plan Admission Admit Date/Time: 07/29/22 05:00 Primary Reason for Your Visit: section Attending Provider: Amy Santiago Primary Care Provider: Vesta Camacho Discharge Orders/Prescriptions Prescriptions: New ibuprofen 800 mg tablet 800 mg PO Q8H PRN (Reason: pain) 7 Days Qty: 30 0RF oxycodone-acetaminophen [Percocet] 5-325 mg tablet 1 tab PO Q6H PRN (Reason: pain) 7 Days Qty: 30 0RF Continued prenat.vits,imelda,jak-niep-ipgsv Tablet 1 tab PO DAILY Referrals / Follow Up: Vesta Camacho MD [Primary Care Provider] - Disposition Disposition (needs filled in before D/C Order can be placed): Home, Self Care
== END 2022-07-31 09:38 | disposition home or self-care (01) | DRG 787 ==
PROVIDERS: Admitting Provider Obstetrics & Gynecology; PCP Family Medicine; Visit Provider Obstetrics & Gynecology
PROC: 10D00Z1 Extraction of Products of Conception, Low, Open Approach (ICD-10-PCS; CPT 59514; principal; 2022-07-29 06:55)
DX: O32.1XX0 Maternal care for breech presentation, not applicable or unspecified (principal); O26.873 Cervical shortening, third trimester; O14.04 Mild to moderate pre-eclampsia, complicating childbirth; Z28.310 Unvaccinated for COVID-19; Z3A.37 37 weeks gestation of pregnancy; Z37.0 Single live birth
CPT/HCPCS: 59025; 59050; 85025; 85027; 86850; 86900; 86901; 99218; J7120; A4216; G0378; J2405

== ENCOUNTER → 2024-06-23 | Outpatient (CLI) | payer OTHER, SELFPAY ==
[2024-06-23 14:48] LABS: hCG Titer Quant., Serum 12520 mIU/mL (1-3)
== END | disposition home or self-care (01) ==
LOC: LAB 13:39
PROVIDERS: PCP Family Medicine; Referring Provider Registered Nurse; Visit Provider Registered Nurse
DX: O26.859 Spotting complicating pregnancy, unspecified trimester (principal); Z3A.00 Weeks of gestation of pregnancy not specified
CPT/HCPCS: 36415; 84702

== ENCOUNTER → 2024-06-25 | Outpatient (CLI) | payer OTHER, SELFPAY ==
[2024-06-25 13:18] LABS: hCG Titer Quant., Serum 15805 mIU/mL (1-3)
== END | disposition home or self-care (01) ==
LOC: LAB 12:18
PROVIDERS: PCP Family Medicine; Referring Provider Registered Nurse; Visit Provider Registered Nurse
DX: O26.859 Spotting complicating pregnancy, unspecified trimester (principal); Z3A.00 Weeks of gestation of pregnancy not specified
CPT/HCPCS: 36415; 84702

== ENCOUNTER → 2024-06-27 | Outpatient (CLI) | payer OTHER, SELFPAY ==
--- NOTE | 2024-06-27 16:25 | US_ITS ---
STUDY: FIRST TRIMESTER OBSTETRICAL ULTRASOUND REASON FOR EXAM: Female, 29 years old patient with bleeding in . LMP: May 05, 2024. TECHNIQUE: Transvaginal TECHNICAL QUALITY: Adequate. PRIOR ULTRASOUND: None. FINDINGS: There is visualization of a single gestational sac in a normal intrauterine position. The mean sac diameter (MSD) measures 1.9 cm, indicating an estimated gestational age (EGA) of 6 weeks, 6 days. The gestational sac shape is within normal limits. There is a visualized yolk sac. The yolk sac measures 5.4 mm. The placenta is non-visualized. There is visualization of a live embryo. The crown-rump length (CRL) measures 2.8 mm, indicating an estimated gestational age (EGA) of 6 weeks, 1 days. There is demonstrated cardiac activity with a heart rate of 105 bpm. The estimated gestation age (EGA) by LMP is 7 weeks, 4 days. The estimated date of delivery (EMI) by LMP is February 09, 2025. The estimated gestation age (EGA) by US is 6 weeks, 4 days. The estimated date of delivery (EMI) by US is February 16, 2025. The uterus measures 8.6 x 5.0 x 5.9 cm. There is no demonstrated uterine fibroid. The cervix is closed. The right ovary measures 2.9 x 1.8 x 4.1 cm. There is no right ovarian cyst. There is no visualized right adnexal mass or complex lesion. The left ovary measures 2.5 x 1.4 x 1.9 cm. There are multiple follicles of the left ovary without a dominant cyst. There is no visualized left adnexal mass or complex lesion. There is no fluid in the cul de sac. There is a small cystic lesion within the cul-de-sac measuring 1.8 x 1.6 x 1.9 cm. US/Transvaginal w/Preg US IMPRESSION: Single living intrauterine gestation with estimated gestational age by size of 6 weeks 4 days. Electronically Signed: Dottie Schilling MD at 7:56 EST ,
== END | disposition home or self-care (01) ==
LOC: US 16:19
PROVIDERS: PCP Family Medicine; Referring Provider Registered Nurse; Visit Provider Registered Nurse
DX: O26.859 Spotting complicating pregnancy, unspecified trimester (principal); Z3A.00 Weeks of gestation of pregnancy not specified
CPT/HCPCS: 76817

== ENCOUNTER → 2024-07-03 | Outpatient (CLI) | payer OTHER, SELFPAY ==
[2024-07-03 17:16] LABS: Protein:Creat Ratio 146 mg/g CRE (0-200)
[2024-07-05 21:07] LABS: Chlamydia By Nucleic Acid AMP Negative (Negative); Gonococcus By Nucleic Acid AMP Negative (Negative)
== END | disposition home or self-care (01) ==
LOC: BWCLAB 16:29
PROVIDERS: PCP Family Medicine; Referring Provider Advanced Practice Midwife; Visit Provider Advanced Practice Midwife
DX: O09.90 Supervision of high risk pregnancy, unspecified, unspecified trimester (principal); Z3A.00 Weeks of gestation of pregnancy not specified; Z87.59 Personal history of other complications of pregnancy, childbirth and the puerperium
CPT/HCPCS: 82570; 84156; 87086; 87088; 87491; 87591